=== PATIENT | male | born 1940 | race Caucasian/White ===

== ENCOUNTER 2023-11-05 12:00 | Emergency (ER) | payer MEDICARE, OTHER ==
[2023-11-05] MEDS ORDERED: Acetaminophen 500 MG TAB ONE ×2 (12:28→12:29)
== END 2023-11-05 13:08 | disposition home or self-care (01) ==
LOC: MADERS 12:00
DX: S93.401A Sprain of unspecified ligament of right ankle, initial encounter (principal); Z99.2 Dependence on renal dialysis; Z79.01 Long term (current) use of anticoagulants; W10.8XXA Fall (on) (from) other stairs and steps, initial encounter